=== PATIENT | male | born 2000 | race Two or more races ===

== ENCOUNTER 2022-07-02 09:32 | Emergency (ER) | payer OTHER ==
[~2022-07-02] VITALS: Ht 167.6 cm; Wt 58.1 kg
== END 2022-07-02 11:19 | disposition home or self-care (01) ==
LOC: EMR PED 09:32 → ER 09:35 → EMR PED 09:35
DX: J11.1 Influenza due to unidentified influenza virus with other respiratory manifestations (principal); Z20.822 Contact with and (suspected) exposure to COVID-19